=== PATIENT | male | born 1985 | race Caucasian/White ===

== ENCOUNTER 2020-02-02 21:04 | Outpatient (CLI) | payer OTHER | END 2020-02-02 21:05 | disposition home or self-care (01) | LOC: COV 21:04 | PROVIDERS: ATTEND Family Medicine | DX: Z20.828 Contact with and (suspected) exposure to other viral communicable diseases (principal) ==

== ENCOUNTER 2022-05-19 08:52 | Emergency (ER) | payer OTHER ==
--- NOTE | 2022-05-19 11:08 | ED Physician Documentation ---
PD HPI HEENT - Stated complaint Stated Complaint: DENTAL PX - Chief complaint Chief Complaint: Heent - History obtained from History obtained from: Patient - History of Present Illness Timing - onset: How many days ago (3-4) Timing - duration: Days Timing - details: Gradual onset, Still present (has gotten more swollen and painful. no drainage.) Location: Tooth (right lower premolar approx tooth 28.) Similar symptoms before: Diagnosis (has had dental abscess/infections but has been awhile. current tooth involved cracked years ago and had not been a bother.) Recently seen: Not recently seen Review of Systems Constitutional: denies: Fever, Chills Cardiac: denies: Chest pain / pressure Respiratory: denies: Dyspnea PD PAST MEDICAL HISTORY - Past Medical History Past Medical History: No - Past Surgical History Past Surgical History: Yes General: Appendectomy - Present Medications Home Medications: Ambulatory Orders Medication Instructions Recorded Confirmed Naproxen 500 mg PO BID #20 tab 05/19/22 clindamycin HCL [Clindamycin HCl] 300 mg PO TID 7 Days #20 cap 05/19/22 - Allergies Allergies/Adverse Reactions: Allergies Allergy/AdvReac Type Severity Reaction Status Date / Time No Known Drug Allergies Allergy Verified 05/19/22 09:18 - Social History Does the pt smoke?: No Smoking Status: Never smoker Does the pt drink ETOH?: No Does the pt have substance abuse?: No - Immunizations Immunizations are current?: Yes PD ED PE NORMAL - Vitals Vital signs reviewed: Yes - General General: Alert and oriented X 3, No acute distress, Well developed/nourished - HEENT HEENT: Pharynx benign, Other (obvious swelling right mandible area with some firmness, no noted fluctuance. gumline right lower with focal swelling but not fluctuant per se. Dental decay in the area. tooth tender to percussion. ). No: Dentition benign - Neck Neck: Supple, no meningeal sign, No adenopathy Results - Vitals Vitals: Vital Signs - 24 hr 05/19/22 11:52 Temperature 36.4 C L Heart Rate 88 Respiratory 16 Rate Blood Pressure 130/71 O2 Saturation 99 Oxygen O2 Source Room air PD Medical Decision Making - ED course Complexity details: considered differential (dental infection developing to abscess but i don't feel fluctuant area as yet. can treat with oral antibiotics and anti-inflammatories. He declines opioid pain meds. ), d/w patient Departure - Departure Disposition: 01 Home, Self Care Clinical Impression: Dental infection, Facial swelling Condition: Stable Record reviewed to determine appropriate education?: Yes Instructions: ED Abscess Dental Prescriptions: clindamycin HCL [Clindamycin HCl] 300 mg PO TID 7 Days #20 cap Naproxen 500 mg PO BID #20 tab Comments: Stay well-hydrated. Clindamycin antibiotic 3 times daily for the next week as prescribed. Also add an anti-inflammatory. I wrote for naproxen 500 mg twice daily with food for the next 7 to 10 days. To this add Tylenol every 4-6 hours if needed for pains. You can use some antiseptic rinse for the mouth and gums such as Listerine or such twice daily as well. I would anticipate improvement over the next 2 to 3 days and resolved by 4 to 5 days. Recheck if not improving in that timeframe. Return if worsening. At this point I do not feel a necessary "target" for trying to gopal it. However if there accumulates more fluid in the area, that may be a an appropriate int ervention. Return if worsening. I sent your prescription to [facility]. Subsequently want a follow-up with a dentist to have more definitive care of the tooth as it will be prone to reinfection again in the future given the prior break and decay. Discharge Date/Time: 05/19/22 11:52
[2022-05-19] MEDS ORDERED: NAPROXEN 250 MG TABLET PO STA (11:39)
[2022-05-19] MEDS ORDERED: ACETAMINOPHEN 325 MG TABLET PO STA (11:39)
[2022-05-19] MEDS ORDERED: CLINDAMYCIN 150 MG CAPSULE PO STA (11:39)
[2022-05-19 11:53] VITALS: BP 130/71
== END 2022-05-19 11:52 | disposition home or self-care (01) ==
LOC: ED 08:52
DX: K04.7 Periapical abscess without sinus (principal); R22.0 Localized swelling, mass and lump, head
CPT/HCPCS: 99282; 99283; A9270